=== PATIENT | male | born 1975 | race African-American/Black ===

== ENCOUNTER 2016-10-04 14:50 | Emergency (ER) | payer SELFPAY ==
[~2016-10-04] VITALS: Ht 185.4 cm; Wt 105.0 kg
[~2016-10-04 14:50] MED LIST: IOHEXOL-300 100 ML BOTTLE ONE; SODIUM CHLORIDE 0.9% 10ML VIAL ONE
[2016-10-04 20:05] LABS: CLARITY URINE CLOUDY (CLEAR); COLOR URINE DARK YELLOW (YELLOW); GLUCOSE URINE 3+ (NEGATIVE); KETONES URINE TRACE (NEGATIVE); LEUKOCYTE ESTERASE URINE NEGATIVE (NEGATIVE); NITRITE URINE NEGATIVE (NEGATIVE); OCCULT BLOOD URINE NEGATIVE (NEGATIVE); PH URINE 5.5 (4.5-8.0); PROTEIN URINE 1+ (NEGATIVE); SPECIFIC GRAVITY URINE 1.042 (1.005-1.030)
[2016-10-04 20:06] LABS: BASOPHILS % 1.2 % (0.0-2.0); EOSINOPHILS % 1.2 % (0.0-5.0); HEMATOCRIT. 41.2 % (42.0-52.0); HEMOGLOBIN. 14.2 g/dL (14.0-18.0); LYMPHOCYTES % 39.6 % (20.0-50.0); MEAN CORPUSCULAR HEMOGLOBIN 31.8 pg (28.0-32.0); MEAN CORPUSCULAR VOLUME 92.2 fL (80.0-94.0); MEAN PLATELET VOLUME 9.3 fl (7.4-10.4); MONOCYTES % 7.6 % (2.0-8.0); NEUTROPHILS % 50.4 % (40.0-76.0); PLATELET 208 x1000/uL (130-400); RED BLOOD CELL COUNT 4.47 mill/uL (4.7-6.1); RED CELL DISTRIBUTION WIDTH 13.1 % (11.6-14.6)
[2016-10-04 20:11] LABS: CHLORIDE 105 mEq/L (98-107)
[2016-10-04 20:12] LABS: PROTHROMBIN TIME 10.4 sec
[2016-10-04 20:15] LABS: *AMPHETAMINES SCREEN URINE NEGATIVE (NEGATIVE); *BARBITURATES SCREEN URINE NEGATIVE (NEGATIVE); *BENZODIAZEPINES SCREEN URINE NEGATIVE (NEGATIVE); *COCAINE SCREEN URINE NEGATIVE (NEGATIVE); CANNABINOID URINE SCREEN PRESUMTIVE POSITIVE (NEGATIVE); METHADONE URINE SCREEN NEGATIVE (NEGATIVE); OPIATES URINE SCREEN NEGATIVE (NEGATIVE); PHENCYCLIDINE URINE SCREEN NEGATIVE (NEGATIVE)
[2016-10-04 20:15] LABS: CARBON DIOXIDE 31 mEq/L (21-32)
[2016-10-04] MEDS ORDERED: SODIUM CHLORIDE 0.9% 1,000 ML IV ONE (20:55)
[2016-10-04] MEDS ORDERED: KETOROLAC 30MG/ML VIAL IV STA (20:55)
[2016-10-04] MEDS ORDERED: KCL 10MEQ/50ML PREMIX 50 ML IV ONE (21:00)
[2016-10-05 01:48] VITALS: BP 150/83
== END 2016-10-05 01:49 | disposition home or self-care (01) ==
LOC: ER 16:34
DX: R10.30 Lower abdominal pain, unspecified (principal); F17.210 Nicotine dependence, cigarettes, uncomplicated; Z98.890 Other specified postprocedural states; Z87.828 Personal history of other (healed) physical injury and trauma
CPT/HCPCS: 36415; 74177; 80053; 80305; 81001; 83690; 85025; 85610; 96374; 99285; A4216; J1885; Q9967; J7030

== ENCOUNTER 2017-12-19 03:02 | Emergency (ER) | payer MEDICAID ==
[~2017-12-19] VITALS: Ht 185.4 cm; Wt 110.0 kg
[2017-12-19] MEDS ORDERED: HYDROCODONE/ACETAMINOPHEN 5/325MG TABLET PO ONE (11:00)
[2017-12-19] MEDS ORDERED: KETOROLAC 60MG/2ML VIAL IM ONE (11:00)
[2017-12-19 13:36] VITALS: BP 158/101
== END 2017-12-19 14:02 | disposition home or self-care (01) ==
LOC: ER 03:02
DX: M54.32 Sciatica, left side (principal); Z98.890 Other specified postprocedural states
CPT/HCPCS: 82962; 96372; 99283; J1885

== ENCOUNTER 2020-06-03 23:52 | Emergency (ER) | payer MEDICAID ==
[~2020-06-03] VITALS: Ht 182.9 cm; Wt 100.0 kg
[2020-06-03 23:58] VITALS: BP 182/86
== END 2020-06-04 00:24 | disposition left against medical advice (07) ==
LOC: ER 23:52
DX: S01.511A Laceration without foreign body of lip, initial encounter (principal); W25.XXXA Contact with sharp glass, initial encounter; Y93.89 Activity, other specified; Y92.89 Other specified places as the place of occurrence of the external cause; Y99.8 Other external cause status
CPT/HCPCS: 99283

== ENCOUNTER 2020-06-07 01:16 | Emergency (ER) | payer MEDICAID ==
[~2020-06-07] VITALS: Ht 185.4 cm; Wt 100.0 kg
[2020-06-07 01:25] VITALS: BP 184/109
[2020-06-07] MEDS ORDERED: AMOX-424 MT (01:59)
[2020-06-07] MEDS ORDERED: BACITRACIN ZINC OINT UDPKT TOP ONE (02:00)
[2020-06-07] MEDS ORDERED: TETANUS, DIPHTHERIA, PERTUSSIS VAC/PF 0.5ML (>7YR OLD) IM ONE (02:00)
== END 2020-06-07 03:03 | disposition home or self-care (01) ==
LOC: ER 01:16
DX: S51.811A Laceration without foreign body of right forearm, initial encounter (principal); Y04.0XXA Assault by unarmed brawl or fight, initial encounter; Y93.89 Activity, other specified; Y92.89 Other specified places as the place of occurrence of the external cause; Y99.8 Other external cause status
CPT/HCPCS: 12001; 90471; 90715; 99283; Z7610

== ENCOUNTER 2022-05-01 12:33 | Emergency (ER) | payer MEDICAID ==
[~2022-05-01] VITALS: Ht 185.4 cm; Wt 105.0 kg
[~2022-05-01 12:33] MED LIST changes: +AMOX-424 MT; -IOHEXOL-300 100 ML BOTTLE ONE; -SODIUM CHLORIDE 0.9% 10ML VIAL ONE
[2022-05-01 12:54] VITALS: BP 175/98
[2022-05-01] MEDS ORDERED: IBUPROFEN 400MG TABLET PO ONE (17:15)
[2022-05-01] MEDS ORDERED: IBUP-2028 MT (17:54)
== END 2022-05-01 18:30 | disposition home or self-care (01) ==
LOC: ER 12:33
DX: S63.91XA Sprain of unspecified part of right wrist and hand, initial encounter (principal); W01.0XXA Fall on same level from slipping, tripping and stumbling without subsequent striking against object, initial encounter; Y93.89 Activity, other specified; Y92.89 Other specified places as the place of occurrence of the external cause; Y99.8 Other external cause status
CPT/HCPCS: 73130; 99283